=== PATIENT | female | born 1995 | race Caucasian/White ===

== ENCOUNTER 2017-03-07 18:07 | Emergency (ER) | payer MEDICAID | END 2017-03-07 20:00 | disposition left against medical advice (07) | LOC: D.ER 18:07 | DX: R50.9 Fever, unspecified (principal) ==

== ENCOUNTER → 2019-06-25 09:43 | Outpatient (CLI) | payer MEDICAID ==
[~2019-06-25 09:43] MED LIST: HYDROCODON-ACE1 EAC7 PO
[2019-07-22 08:17] VITALS: BMI 26.9
== END | disposition home or self-care (01) ==
LOC: D.LDO 09:43
PROVIDERS: ATTEND Student in an Organized Health Care Education/Training Program
DX: O26.893 Other specified pregnancy related conditions, third trimester (principal); Z3A.35 35 weeks gestation of pregnancy

== ENCOUNTER 2019-07-02 17:14 | Inpatient (IN) | payer MEDICAID ==
[~2019-07-02] VITALS: Ht 160 cm; Wt 76.2 kg
[2019-07-02 22:02] VITALS: BP 118/64; Ht 160 cm; Wt 76.2 kg
[2019-07-03 06:06] LABS: HEMATOCRIT 29.7 % (36.0-48.0); MCH 22.4 pg (26.0-34.0); MCHC 30.3 g/dL (31.0-37.0); MCV 74.1 fL (80.0-100.0); PLATELET COUNT 231 10x3/uL (130-400); RBC 4.01 10x6/uL (4.00-5.40); RDW 16.1 % (11.5-14.5); WBC 11.6 10x3/uL (4.8-10.8)
[2019-07-03 07:56] LABS: UDS - AMPHET NEGATIVE QUAL (NEGATIVE); UDS - BARB NEGATIVE QUAL (NEGATIVE); UDS - BENZO NEGATIVE QUAL (NEGATIVE); UDS - COCAINE NEGATIVE QUAL (NEGATIVE); UDS - OPIATE NEGATIVE QUAL (NEGATIVE); UDS - PCP NEGATIVE QUAL (NEGATIVE); UDS - THC NEGATIVE QUAL (NEGATIVE)
[2019-07-03 08:37] VITALS: BP 119/78
--- NOTE | 2019-07-03 08:37 | NUR ---
REC'D BACK TO ROOM 1276 FROM RECOVERY ROOM. VSS. FUNDUS FIRM, MIDLINE AND U2 WITH SMALL AMT RUBRA LOCHIA, NO CLOTS NOTED. 250 MLS LIGHT YELLOW URINE EMPTIED FROM YAN. PT REQUESTING BE BROUGHT TO ROOM FOR BF KATIE. BREATH SOUNDS CLEAR AND EQUAL, BOWEL SOUNDS HYPOACTIVE X4 QUADRANTS. DRSG TO LOWER TRANSVERSE ABD INCISION, CLEAN DRY AND INTACT WITH NO DRAINAGE NOTED. TOWELS, CHUX, AND PERIPAD CHANGED. PT PLACED IN HIGH FOWLERS POSTION PER REQUEST. DENIES PAIN AND NEEDS AT THIS TIME. SCD'S TO BLE. WILL NOTIFY NBN THAT PT OUT OF PACU AND REQUESTING TO BF . BED IN LOW POSITION WITH SRUPX2. CL AND PHONE WITHIN REACH.
--- NOTE | 2019-07-03 08:38 | NUR ---
KIMANI MON NOTIFIED THAT PT HAD BEEN MOVED TO ROOM 1276 AND WAS REQUESTING BE BROUGHT TO ROOM FOR BF.
--- NOTE | 2019-07-03 08:44 | NUR ---
DR AYALA CALLED TO VERIFY POST OP PITOCIN ORDERS. MESSAGE LEFT.
--- NOTE | 2019-07-03 08:52 | NUR ---
REPORT TO Dejuan MUNGUIA RN.
--- NOTE | 2019-07-03 09:00 | NUR ---
PITOCIN INFUSING PER ORDERS, TO BREAST AT THIS TIME AND PT RATES PAIN AT 0/10. FUNDUS FIRM AT U/1 WITH SCANT LOCHIA NOTED. CALL LIGHT IN REACH,SIDE RAILS UP X 2 AND FAMILY AT BEDSIDE.
--- NOTE | 2019-07-03 09:41 | NUR ---
PT CONTINUE TO DENY PAIN OR DISCOMFORT, FUNDUS FIRM AT U/1, AUDI CARE PER RN WITH CHUX/TOWELS CHANGED. CALL LIGHT IN REACH WITH FAMILY AT BESIDE.
--- NOTE | 2019-07-03 10:53 | NUR ---
RATES PAIN AT 10/10 PAIN MED GIVEN SCANNED TO EMAR. FUNDUS FIRM AT U/1 WITH LIGTH BLEEDING NOTED. AUDI CARE PER RN WITH TOWELS/CHUX CHANGED. PT TILTED TO HER LEFT SIDE. CALL LIGHT IN REACH
[2019-07-03 15:00] VITALS: BP 128/79
--- NOTE | 2019-07-03 15:10 | NUR ---
PT SITTING UP IN BED WITH IN CRIB AT BEDSIDE. RATES PAIN AT INCISION AT 8/10. MEDS GIVEN SCANNED TO EMAR. FUNDUS FIRM AT U/1 WITH LIGHT BLEEDING NOTED WITHOUT CLOTS. CALL LIGHT IN REACH.
--- NOTE | 2019-07-03 18:11 | NUR ---
PT BONDING WITH INFANT, RATES PAIN AT 3/10 AT THIS TIME. FUNDUS FIRM AT U/U WITH LIGHT BLEEDING NOTED, CHUX/PADS CHANGED. YAN CATH EMPTIED WITH TOTAL OUTPUT OF 2000ML CLEAR URINE. PT DENIES NEEDS AT THIS TIME. CALL LIGHT IN REACH WITH FAMILY AT BEDSIDE.
--- NOTE | 2019-07-03 19:21 | NUR ---
REC'D PT AA&O X 4. PAIN AND NEEDS ASSESSED. PT REPORTS PAIN 6-03/28. PT INFORMED THAT ORDERED MORPHINE WILL BE BROUGHT AND ADMINISTERED. BEDSIDE SHIFT REPORT REC'D FROM Pearl MUNGUIA RN. MULTIPLE VISITORS AT PT'S BEDSIDE AT THIS TIME.
[2019-07-03 19:43] VITALS: BP 132/84
--- NOTE | 2019-07-03 19:50 | NUR ---
THIS RN TO BEDSIDE FOR MORPHINE PUSH TO BE GIVEN. PT REPORTS PAIN 6-7/10. 4MG SIVP MORPHINE ADMINSTERED. SHIFT ASSESSMENT COMPLETED AT THIS TIME. SEE FLOWSHEET. PT REQUEST ICE CHIPS AT THIS TIME.
--- NOTE | 2019-07-03 21:30 | NUR ---
YAN CATH REMOVED TIP INTACT, EMPTIED 1000 MLS OF CLEAR YELLOW URINE, POC DISCUSSED WITH PT, PT VERBALIZES UNDERSTANDING, DENIES NEEDS AT THIS TIME, IN OPEN CRIB CART AND FOB AT BEDSIDE
--- NOTE | 2019-07-03 22:25 | NUR ---
IV CONVERTED TO SALINE LOCK, FLUSHED WITH 10MLS OF NS WITH NO DIFFICULTY, PT UP TO SIDE OF BED, PT DENIES NEED TO VOID, PT INST ON VOIDING NO LATER THAN 0230AM, PT VERBALIZES UNDERSTANDING, AUDI PAD AND PANTIES PLACED, LIGHT BLEEDING NOTED WITH NO CLOTS, PT REQUESTED TO AMB AT THIS TIME, INFANT BACK TO Y AT THIS TIME PER THIS RN, PT TRANSFERRED VIA AMB TO ROOM 1257, FOB AT SIDE WITH ALL BELONGINGS, PT REQUEST TO AMB IN ROOM FOR A FEW MINUTE, PT INST ON USING [place] HAT WHEN VOIDING, PT VERBALIZES UNDERSTANDING, PT ORIENTED TO ROOM, BED IN LOW POSITION, SIDE RAILS X 2, CALL LIGHT IN REACH, FOB PROVIDED BEDDING
--- NOTE | 2019-07-03 23:09 | NUR ---
PT RESTING IN BED, ADM PERCOCET PER MD ORDERS, SEE EMAR, PT DENIES FURTHER NEEDS, INFANT IN OPEN CRIB CART AT BEDSIDE
[2019-07-04 00:23] VITALS: BP 130/87
--- NOTE | 2019-07-04 00:23 | NUR ---
PT PATIENT CARE LIGHT, PT REPORTS VOIDING WITH NO DIFFICULTY, EMPTIED 750 MLS OF CLEAR YELLOW URINE, VS OBTAINED, PT RATES INC PAIN 3/10, DENIES NEEDS AT THIS TIME, FOB HOLDING
--- NOTE | 2019-07-04 02:30 | NUR ---
PT AWAKE, LOOKING AT CELL PHONE, INFANT IN OPEN CRIB CART AT BEDSIDE, PT RATES INC PAIN 5/10, DENIES NEED FOR PAIN MED AT THIS TIME, STATES "IT'S TOLERABLE RIGHT NOW", PT INST TO USE CALL LIGHT WHEN NEEDING PAIN MED, PT VERBALIZES UNDERSTANDING, REQUESTED AND SERVED CUP OF ICE, DENIES FURTHER NEEDS, FOB ASLEEP ON COUCH
[2019-07-04 04:31] VITALS: BP 135/82
--- NOTE | 2019-07-04 04:31 | NUR ---
PT SITTING UP IN BED CHANGING INFANTS DIAPER, C/O INC PAIN, REFUSES PERCOCET, REPORTS THAT SHE WILL TAKE MOTRIN, ADM MOTRIN PER MD ORDERS, SEE EMAR, VS OBTAINED, PT REPORTS VOIDING, STATES "I DIDN'T GO IN THAT BUCKET, I'M SORRY, I WILL NEXT TIME AND LET YOU KNOW", PT REPORTS VOIDING LARGE AMOUNT, DENIES FURTHER NEEDS, FOB AT BEDSIDE
--- NOTE | 2019-07-04 05:30 | NUR ---
PT SITTING UP IN BED HOLDING INFANT, RATES INC PAIN /, DENIES NEED FOR PAIN MED AT THIS TIME
[2019-07-04 05:48] LABS: BASOPHILS 0.3 % (0-2); EOSINOPHILS 2.1 % (0-7); IMMATURE GRANULOCYTES 0.5 % (0-5); LYMPHOCYTES 11.3 % (15-50); MCH 22.2 pg (26.0-34.0); MCHC 30.8 g/dL (31.0-37.0); MCV 72.2 fL (80.0-100.0); MONOCYTES 7.6 % (2-11); NEUTROPHILS 78.2 % (40-80); RBC 3.24 10x6/uL (4.00-5.40); RDW 15.8 % (11.5-14.5); WBC 10.3 10x3/uL (4.8-10.8)
[2019-07-04 05:52] LABS: HEMATOCRIT 23.4 % (36.0-48.0); HEMOGLOBIN 7.2 g/dL (12-16); PLATELET COUNT 166 10x3/uL (130-400)
--- NOTE | 2019-07-04 05:57 | NUR ---
DR PETEY METCALF
--- NOTE | 2019-07-04 05:58 | NUR ---
DR CALLOWAY CALLS UNIT, REPORT OF CRITICAL LAB, NO ORDERS RECEIVED
[2019-07-04 08:11] LABS: RAPID PLASMA REAGIN Non Reactive (Non Reactive)
--- NOTE | 2019-07-04 08:15 | NUR ---
DR. AYALA ON UNIT, AND ACKNOWLEDGES PT'S AM H/H, STATES PT DENIES DIZZINESS, AND WILL START PT ON PO IRON.
--- NOTE | 2019-07-04 08:27 | NUR ---
Tammie Khan [birth year] S: Patient states she breastfeeds for every feeding then provides infant some formula after to make sure is getting enough because she is unsure what baby is getting out when latched. Denies pain with latching. Verbally agrees to work on latching only for the next several feedings without given formula. States she wasn't rodriguez how her body made milk. appears content following being fed from the breast, just unsure if she is getting enough. O: Praised for . Asked how do you think is going? Your body is capable to making exactly what infant needs. Placing infant to the breast for every feeding will allow you colostrum to increase by volume to meet infant needs. Supply and demand, where there is a demand your supply will meet. It is normal for infant to want to nurse often and how long remain latch can vary per feeding. Most infant will nurse every 2-3 hours for 15-20 minutes, but this is just an estimate and not every infant will feed this way. Allow you baby to stay latch as long as is eating. This will help with building your milk supply to meet infant needs. You don't have to provide formula after every feeding. Informed patient takes time, practice, and patience in the beginning. Explained benefits of skin to skin to help promote led feeding, normal feeding patterns for a breastfed , breastmilk composition, supply and demand, the importance of practicing responsive feeding, positions, and how to verify if is latched correctly to the breast. Asked if any pain or discomfort when latching ? A: Patient providing formula after every feeding because unsure how much is getting at the breast. P: Patient will latch to the breast for every feeding and nor provide formula for the next several feeding. Patient will ask for help with if any questions or concerns. Lori Mittal, CLC
[2019-07-04 08:30] VITALS: BP 122/62
--- NOTE | 2019-07-04 08:30 | NUR ---
AM ASSESSMENT COMPLETED. SEE FLOWSHEET. PT HAS FINISHED . PT HAS LARGE WHITE DRESSING OVER ABDOMEN, C/D/I. SCANT RUBRA LOCHIA, NO CLOTS. ABDOMEN PALPATES SOFT. PT DENIES ALL NEEDS AT THIS TIME. SRUP X 2, CALL LIGHT AND PHONE WITHIN REACH.
--- NOTE | 2019-07-04 10:29 | NUR ---
SCHEDULED MOTRIN GIVEN. DISCUSSED FERROUS ADMINISTRATION WITH PATIENT AND IRON FORTIFIED FOODS. VERBALIZED UNDERSTANDING. DESIRES SHOWER AT THIS TIME. ITEMS GIVEN FOR SHOWER. UP AD BILL. SAYS SHE FEELS BETTER MOVING. INCISIONAL PAIN 5/10 STABBING PAIN. TO LET RN KNOW IF MOTRIN DOES NOT HELP. UP TO SHOWER, COMPLETE LINEN CHANGE DONE. VISITOR ON COUCH. INFANT AWAKE IN CRIB.
[2019-07-04 12:00] VITALS: BP 126/76
--- NOTE | 2019-07-04 14:04 | NUR ---
SITTING UP IN CHAIR HOLDING . SAYS SHE AMBULATED AROUND A FEW TIMES. FOB IN ROOM. NO REQUESTS. TO CALL IF ANYTHING IS NEEDED.
--- NOTE | 2019-07-04 15:58 | NUR ---
TO ROOM TO CHECK ON PATIENT. C/O 8-05/29 INCISIONAL INTERMITTENT PAIN. SCHEDULED MOTRIN GIVEN ALONG WITH PERCOCET 10 MG PO. VS OBTAINED. UP FROM CHAIR TO BATHROOM AND THEN TO BED. SHAKING NOTED, STATES "I'M COLD". AFEBRILE. ENCOURAGED TO REST. INSTRUCTED PERCOCET MAY CAUSE DROWSYNESS. VERBALIZED UNDERSTANDING. SIDE RAILS UP X 2, CALL LIGHT IN REACH. FOB ON COUCH HOLDING . FRESH WATER AND ICE GIVEN. NO ADDITIONAL REQUESTS. TO CALL IF ANYTHING IS NEEDED.
[2019-07-04 16:00] VITALS: BP 112/75
--- NOTE | 2019-07-04 17:13 | NUR ---
SITTING UP . SAYS SHE IS STARTING TO FEEL THE MEDICATION AND DECIDED TO BREASTFEED INFANT BEFORE FALLING ASLEEP. 02/26 ABDOMINAL CRAMPING/ACHING. FOB IN ROOM. REGULAR DIET AT BEDSIDE. SIDERAILS UP X 2, CALL LIGHT IN REACH. TO CALL IF ANYTHING IS NEEDED. VERBALZED UNDERSTANDING.
--- NOTE | 2019-07-04 17:52 | NUR ---
ROUNDING COMPLETED BY THIS RN. PT IN BED WITH LATCHED AND SUCKING TO RIGHT BREAST. IRON SUPPLEMENT ADMIN, SEE EMAR. PT RATES PAIN IN ABD AT 7/10, STATES IS EASING UP. FAMILY AT BEDSIDE. DINNER TRAY ON BEDSIDE TABLE. PT DENIES ALL OTHER NEEDS AT THIS TIME. SRUPX2, CALL LIGHT AND PHONE WITHIN REACH.
--- NOTE | 2019-07-04 18:11 | NUR ---
FRESH BABY BLANKETS PROVIDED AT PT REQUEST. DENIES ALL OTHER NEEDS AT THIS TIME.
[2019-07-04 19:15] VITALS: BP 139/75
--- NOTE | 2019-07-04 19:15 | NUR ---
ASSESSMENT PER FLOW SHEET, VS OBTAINED, SALINE LOCK IN LEFT WRIST INTACT WITH NO REDNESS OR EDEMA, FF, ML, U/2, PT REPORTS LITE BLEEDING WITH NO CLOTS THIS EARLY THIS MORNING, BIKINI INC WITH DERMABOND CDI WITH NO DRAINAGE NOTED, PT REPORTS FLATUS, NO BM AND VOIDING WITH NO DIFFICULTY, PT RATES INC PAIN -03/28, INFORMED PT THAT SHE COULD HAVE PAIN MED AT 8PM, PT VERBALIZES UNDERSTANDING, STATES "I'LL LET YOU KNOW IF I WANT TO TAKE IT AT THAT TIME OR NOT", PT REQUESTED AND SERVED CUP OF ICE, INFANT IN OPEN CRIB CART AT BEDSIDE, DINNER TRAY AND TRASH REMOVED
--- NOTE | 2019-07-04 20:28 | NUR ---
PT HOLDING INFANT, ADM PERCOCET PER MD ORDERS, SEE EMAR, WITH APPLE JUICE, PT DENIES FURTHER NEEDS, FOB AT BEDSIDE
--- NOTE | 2019-07-04 21:11 | NUR ---
PT , ADM IRON TAB PER MD ORDERS, SEE EMAR, WITH FRESH H20, PT REPORTS PAIN IS BETTER, RATES 3-4/10, DENIES FURTHER NEEDS, FOB AT BEDSIDE
--- NOTE | 2019-07-04 22:43 | NUR ---
PT HOLDING INFANT, ADM MOTRIN PER MD ORDERS, SEE EMAR, SALINE LOCK FLUSHED WITH NO DIFFICULTY, PT SERVED FRESH H20 AND CUP OF ICE, PT DENIES FURTHER NEEDS, FOB AT BEDSIDE
[2019-07-05] VITALS: BP 122/72
--- NOTE | 2019-07-05 | NUR ---
PT AWAKE, JUST FINISHED CHANGING INFANTS DIAPER, TO FOB'S ARMS AT THIS TIME, VS OBTAINED, ADKED PT ABOUT PAIN, PT STATES "IT'S TOLERABLE", DENIES NEED FOR ANY PAIN MED, PT REQUESTED AND SERVED SANDWICH TRAY AND APPLE JUICE, DENIES FURTHER NEEDS
--- NOTE | 2019-07-05 02:32 | NUR ---
PT HOLDING INFANT, DENIES NEED FOR PAIN MED, REQUESTED AND SERVED CUP OF ICE, DENIES FURTHER NEEDS, FOB AT BEDSIDE
[2019-07-05 04:29] VITALS: BP 127/78
--- NOTE | 2019-07-05 04:29 | NUR ---
PT AWAKE, HOLDING TO BREAST, PT EDUCATED ON AND STAYING AT BREAST A PACIFIER, PT VERBALIZES UNDERSTANDING, PT READY TO GET SOME REST, VS OBTAINED, RATES INC PAIN AND CRAMPING 04/28, ADM PERCOCET AND MOTRIN PER MD ORDERS, SEE EMAR, PT DENIES FURTHER NEEDS, TO NSY VIA OPEN CRIB CART PER THIS RN, FOB ASLEEP ON COUCH
--- NOTE | 2019-07-05 06:27 | NUR ---
PT RESTING WITH EYES CLOSED, RESP QUIET, NO DISTRESS NOTED, LEFT UNDISTURBED AT THIS TIME, FOB ASLEEP ON COUCH
--- NOTE | 2019-07-05 07:10 | NUR ---
NO BEDSIDE REPORT DONE PT IS CURRENTLY SLEEPING. REPORT REC'D FROM ANA LAURA HERNANDEZ RN
--- NOTE | 2019-07-05 07:39 | NUR ---
TO ROOM FOR SHIFT ASSESSMENT. PT CURRENTLY SITTING UP IN BED EATING BREAKFAST. PT ALLOWED TO EAT AT THIS TIME. WILL RETURN FOR ASSESSMENT ONCE PT HAS COMPLETED BREAKFAST. CUP OF ICE AND PERIPADS PROVIDED PER PT REQUEST.
--- NOTE | 2019-07-05 07:48 | NUR ---
DR AYALA TO SEE PT AT THIS TIME.
[2019-07-05 08:00] VITALS: BP 128/82
--- NOTE | 2019-07-05 08:00 | NUR ---
THIS RN TO BEDSIDE FOR SHIFT ASSESSMENT AT THIS TIME. PT AA&O X 4 SITTING UP IN BED. PAIN ASSESSED. PT REPORTS PAIN 6/10 STATES "IT'S TOLERABLE." PAIN MANAGEMENT TEACHING GIVEN AND POC DISCUSSED TO HAVE PAT'S PAIN LEVEL AT 3/10. PT ENCOURAGED TO TAKE PAIN MEDICATION AT NEXT AVAILABLE TIME. PT IS AGREEABLE. PT DENIES FURTHER NEEDS AT THIS TIME.
--- NOTE | 2019-07-05 08:41 | NUR ---
Erin Tammie Betts [birth year] S: Patient states she breastfed infant only yesterday/last night. States baby latch is still good and she feels like is going. Denies questions or concerns. Verbally agrees to ask for help from nursery staff with . O: Patient sitting up in bed, FOB on sofa sleeping, and in nursery. Asked how are thing going with , were you able to latch infant only last night? Praised for and encouraged to continue to feed when showing feeding cues. If doesn't wake to feed, please wake infant around every 2-3 hours. Explained normal feeding patterns. Any questions or concerns? A: Patient expresses positive feedback with . P: Continue to promote exclusively during hospital visit. Lori Mittal, CLC
--- NOTE | 2019-07-05 08:55 | NUR ---
PT MEDICATED W/PERCOCET 10/325MG ONE TAB PO. DENIES NEEDS AT THIS TIME. WATCHING TV AT THIS TIME.
--- NOTE | 2019-07-05 09:30 | NUR ---
PT AMBULATING IN HALLS ON WS.
--- NOTE | 2019-07-05 10:51 | NUR ---
PT MEDICATED W/SCHEDULED MOTRIN AT THIS TIME. REPORTS SHE ISN'T REALLY HAVING ANY PAIN CURRENTLY. DENIES NEEDS.
[2019-07-05 12:29] VITALS: BP 114/79
--- NOTE | 2019-07-05 12:30 | NUR ---
ROUNDS MADE FOR VITAL SIGNS. PT CURRENTLY UP AMBULATING IN ROOM. DENIES PAIN AT PRESENT. SEE FLOWSHEET FOR VITAL SIGNS.
--- NOTE | 2019-07-05 12:46 | NUR ---
PT RINGS CALL LIGHT. THIS RN TO ROOM. PT IS REQUESTING AN ABD BINDER AND REPORTS SHE IS GETTING READY TO SHOWER. REQUEST SALINE LOCK BE REMOVED. 2CUPS ICE SERVED.
--- NOTE | 2019-07-05 13:16 | NUR ---
PT RINGS CALL LIGHT TO REPORT SHE HAS QUESTIONS ABOUT DISCHARGE. THIS RN TO BEDSIDE. PT HAS SHOWERED, DRESSED AND READY FOR DISCHARGE. PT INFORMED THAT DR AYALA WILL HAVE TO BE CONTACTED FOR DISCHARGE ORDER. PT IS AGREEABLE.
--- NOTE | 2019-07-05 14:00 | NUR ---
THIS RN TO BEDSIDE FOR DISCHARGE TEACHING. PT EDUCATED ON POST WARNING SIGNS
--- NOTE | 2019-07-05 14:30 | NUR ---
PT DISCHARGED HOME IN STABLE CONDITION. PT TRANSPORTED VIA W/C W/ TO AWAITING VEHICLE TO BE DRIVEN HOME BY SIG OTHER.
--- NOTE | 2019-07-05 16:07 | NUR ---
pt reports pain 8/10. percocet 10/325mg one tab and motrin 600mg po given. pt awaiting sig other to return and will be ready for discharge.
--- NOTE | 2019-07-27 12:26 | OP ---
PATIENT NAME: GANESH LUU MEDICAL RECORD: [id number] :97 LOCATION:[id number] ADMISSION DATE:07/03/19 SURGEON: ALVINO AYALA DO DATE OF OPERATION: 07/03/2019 PREOPERATIVE DIAGNOSIS: Nonreassuring heart tracing. POSTOPERATIVE DIAGNOSIS: Nonreassuring heart tracing. PRIMARY SURGEON: Alvino Ayala DO MECHANICAL CAR CHECKER SURGEON: Not applicable. PROCEDURE: Primary low transverse section via Pfannenstiel incision. FINDINGS: Female , weight 5 pounds 10 ounces, Apgars 9 and 9, delivered at 7:22 a.m. Normal bilateral tubes and ovaries. Clear amniotic fluid. SPECIMENS: Placenta and cord. ESTIMATED BLOOD LOSS: 800 cc. IV fluids: 2 liters. URINE OUTPUT: 300 cc of clear urine. COMPLICATIONS: None. CONDITION: Stable. DESCRIPTION OF PROCEDURE: The risks, benefits, alternatives, and indications of the procedure were discussed with the patient and she voiced understanding of the procedure and wished to proceed. She was taken to the OR, where spinal anesthesia was administered and found to be adequate. She was prepped and draped in the normal sterile fashion. She was placed in dorsal supine position with leftward tilt. A Pfannenstiel skin incision was made with a scalpel and carried down to the underlying layer of the fascia with the Bovie. The fascia was incised at the midline and extended laterally. The inferior aspect of the fascial incision was grasped with Jazzmine clamps and the rectus muscle was dissected off sharply. Attention was then turned to the superior aspect of the fascial incision and the rectus muscle was dissected off in a similar fashion. The rectus muscle was in the midline down to the level of peritoneum. The peritoneum was identified and noted to be free of adherent bowel and entered bluntly. The peritoneum was further with gentle traction. The bladder blade was inserted, and the uterus was incised in a transverse fashion in the lower uterine segment. The incision was extended with cephalad and caudad traction. The infant's head was brought to the incision and the infant delivered without difficulty. Mouth and nose were suctioned. Cord was clamped and cut, and the was handed off to awaiting splunk consultant. The placenta was manually removed. The uterus was exteriorized, and a moist lap was used to assure complete removal of placental membranes. The hysterotomy was closed with 0 Vicryl in a running locked fashion with good hemostasis noted. Uterus, tubes, and ovaries were noted to be normal and were returned back to the abdominal cavity. A moist laparotomy sponge was used to assure complete removal of blood clots and fluid from the abdominal cavity. The hysterotomy was reinspected and OPERATIVE REPORT [id number] GANESH LUU noted to be hemostatic. Rectus muscles closed with 2-0 Monocryl in a running fashion with good hemostasis. The fascial incision was closed with 0 Vicryl in a running fashion with good hemostasis. The skin was closed with 3-0 Monocryl in a subcuticular fashion and covered with Dermabond and good hemostasis. All needle, lap, sponge, and instrument counts were correct times 2. The patient tolerated the procedure well, and she was taken to recovery room in stable condition. TRANSINT:[id number] Voice Confirmation ID: [id number] DOCUMENT ID: [id number] ALVINO AYALA DO at 1226 CC: [id number] DICTATION DATE: 07/05/19 165 WINDOW GLASS CUTTER OFF: 07/05/19 2311 DIS IN 07/05/19 [facility] [address] [place] [address]
== END 2019-07-05 16:30 | disposition home or self-care (01) | DRG 788 ==
LOC: D.LDO 17:14 → D.LD 20:30 → D.LDO 07-03 05:50 → D.LD 07-03 05:50
PROVIDERS: ADMIT Student in an Organized Health Care Education/Training Program; ATTEND Student in an Organized Health Care Education/Training Program
PROC: 10D00Z1 Extraction of Products of Conception, Low, Open Approach (ICD-10-PCS; principal; 2019-07-03 07:30)
DX: O36.8330 Maternal care for abnormalities of the fetal heart rate or rhythm, third trimester, not applicable or unspecified (principal); Z3A.36 36 weeks gestation of pregnancy; Z37.0 Single live birth

== ENCOUNTER 2019-07-22 08:15 | Emergency (ER) | payer MEDICAID ==
[~2019-07-22] VITALS: Ht 160 cm; Wt 69.1 kg
[2019-07-22 08:17] VITALS: Ht 160 cm; Wt 69.1 kg
[2019-07-22 08:49] LABS: BASOPHILS 0.5 % (0-2); HEMATOCRIT 33.4 % (36.0-48.0); IMMATURE GRANULOCYTES 0.2 % (0-5); LYMPHOCYTES 15.3 % (15-50); MCH 22.2 pg (26.0-34.0); MCHC 29.9 g/dL (31.0-37.0); MCV 74.1 fL (80.0-100.0); MEAN PLATELET VOLUME 10.5 fL (7.4-10.4); MONOCYTES 4.2 % (2-11); NEUTROPHILS 75.8 % (40-80); RBC 4.51 10x6/uL (4.00-5.40); RDW 17.5 % (11.5-14.5); WBC 9.2 10x3/uL (4.8-10.8)
[2019-07-22 08:50] LABS: PLATELET COUNT 408 10x3/uL (130-400)
[2019-07-22 08:58] LABS: HCG URINE NEGATIVE (NEGATIVE)
[2019-07-22 09:29] LABS: ANION GAP 10.3 mmol/L (8-16); CALCIUM 9.1 mg/dL (8.5-10.1); CARBON DIOXIDE 26.4 mmol/L (21.0-32.0); POTASSIUM - SERUM 3.7 mmol/L (3.5-5.1)
[2019-07-22 09:57] LABS: ALBUMIN 3.4 g/dL (3.4-5.0); BILIRUBIN - TOTAL 0.61 mg/dL (0.2-1.3); PROTEIN - SERUM 7.7 g/dL (6.4-8.2)
[2019-07-22 10:15] LABS: APPEARANCE CLEAR (CLEAR); BILIRUBIN NEGATIVE (NEGATIVE); COLOR YELLOW (YELLOW); GLUCOSE NEGATIVE (NEGATIVE); KETONE NEGATIVE (NEGATIVE); NITRITE NEGATIVE (NEGATIVE); PROTEIN NEGATIVE (NEGATIVE); UROBILINOGEN NORMAL (NORMAL)
[2019-07-22] MEDS ORDERED: HYDROCODON-ACE1 EAC7 PO (10:43)
[2019-07-22 10:51] VITALS: BP 132/80
== END 2019-07-22 10:52 | disposition home or self-care (01) ==
LOC: D.ER 08:15
PROVIDERS: Emergency Medicine
DX: N28.1 Cyst of kidney, acquired (principal); R10.9 Unspecified abdominal pain

== ENCOUNTER 2020-07-09 06:42 | Emergency (ER) | payer MEDICAID ==
[~2020-07-09] VITALS: Ht 162.6 cm; Wt 59.1 kg
[2020-07-09 06:49] VITALS: Ht 162.6 cm; Wt 59.1 kg
[2020-07-09] MEDS ORDERED: FLAGYL500 MG PO (07:21)
[2020-07-09] MEDS ORDERED: DOXYCYCLINE HY100 M2 PO (07:21)
[2020-07-09 07:58] LABS: BACTERIA MODERATE HPF (NONE SEEN); BILIRUBIN NEGATIVE (NEGATIVE); EPITHELIAL CELLS 0-5 /hpf (0-5); KETONE MODERATE mg/dL (NEGATIVE); NITRITE NEGATIVE (NEGATIVE); UROBILINOGEN NORMAL mg/dL (< 2); WHITE CELLS - URINE 25-50 HPF (0-4)
[2020-07-09 08:28] LABS: BASOPHILS 0.6 % (0-2); EOSINOPHILS 1.1 % (0-7); HEMATOCRIT 37.1 % (36.0-48.0); HEMOGLOBIN 11.8 g/dL (12-16); IMMATURE GRANULOCYTES 0.2 % (0-5); MCH 22.3 pg (26.0-34.0); MCHC 31.8 g/dL (31.0-37.0); MCV 70.1 fL (80.0-100.0); MEAN PLATELET VOLUME 9.9 fL (7.4-10.4); MONOCYTES 10.1 % (2-11); RBC 5.29 10x6/uL (4.00-5.40); RDW 16.4 % (11.5-14.5)
[2020-07-09 08:30] LABS: PLATELET COUNT 177 10x3/uL (130-400)
[2020-07-09 08:38] LABS: ANION GAP 13.3 mmol/L (8-16); CALCIUM 9.1 mg/dL (8.5-10.1); CARBON DIOXIDE 23.2 mmol/L (21.0-32.0); POTASSIUM - SERUM 3.5 mmol/L (3.5-5.1)
[2020-07-09 08:45] LABS: MONO NEGATIVE (NEGATIVE)
[2020-07-09 08:50] VITALS: BP 120/69
[2020-07-09 09:04] LABS: HCG URINE NEGATIVE (NEGATIVE)
[2020-07-09 09:39] LABS: HIV 1 & 2- RAPID SCREEN NEGATIVE (NEGATIVE)
[2020-07-10 12:11] LABS: EBV - NUCLEAR ANTIGEN AB IGG 71.2 U/mL (0.0-17.9); EBV VIRAL CAPSID AB IGG >600.0 U/mL (0.0-17.9)
[2020-07-11 08:14] LABS: CHLAMYDIA TRACHOMATIS, NAA Negative (Negative)
== END 2020-07-09 09:15 | disposition home or self-care (01) ==
LOC: D.ER 06:42
PROVIDERS: Emergency Medicine
DX: N75.1 Abscess of Bartholin's gland (principal); N39.0 Urinary tract infection, site not specified; N76.0 Acute vaginitis